=== PATIENT | female | born 1990 | race Caucasian/White ===

== ENCOUNTER 2023-05-06 20:40 | Emergency (ER) | payer MEDICAID, OTHER ==
[~2023-05-06] VITALS: Ht 157.5 cm; Wt 52.3 kg
[2023-05-06 21:03] VITALS: BP 107/60
[2023-05-06] MEDS ORDERED: MICO45CR44 VG (22:28)
[2023-05-06] MEDS ORDERED: IBUP-1554 PO (22:28)
[2023-05-06] MEDS ORDERED: CLOB15CR10 TP (22:28)
[2023-05-06] MEDS ORDERED: CEPH-558 PO (22:28)
== END 2023-05-06 22:49 | disposition home or self-care (01) ==
LOC: EMS 22:34
DX: L24.5 Irritant contact dermatitis due to other chemical products (principal); F12.90 Cannabis use, unspecified, uncomplicated
CPT/HCPCS: 99283; Z7502